=== PATIENT | female | born 1945 | race Caucasian/White ===

== ENCOUNTER → 2016-05-20 | Outpatient (CLI) | payer OTHER ==
[~2016-05-20] MED LIST: ASPEC81 PO; CHOL100010 PO; METO50TA7 PO; MULT-506 PO; NITR-5 PO; OMEG10007 PO; PARO1TAB9 PO
--- NOTE | 2016-05-21 12:25 | MAMMOGRAPHY REPORT ---
BILATERAL DIGITAL SCREENING MAMMOGRAM WITH CAD: 05/20/2016 CLINICAL HISTORY: Routine screening examination. TECHNIQUE: Bilateral CC and MLO views were obtained. Current study was also evaluated with a Comput er Aided Detection (CAD) system. COMPARISON: Comparison is made to exams dated: 05/17/2015 mammogram, 05/16/2014 mammogram, 05/13/2013 mammogram, and 05/03/2011 mammogram - [facility]. BREAST COMPOSITION: The tissue of both breasts is heterogeneously dense, which may obscure small ma sses. FINDINGS: There are stable asymmetries in the right lower inner quadrant and retroareolar breast. A benign coarse calcification in the right breast and mild vascular calcification. No new suspicious mass, architectural distortion or cluster of microcalcifications is seen. IMPRESSION: ACR BI-RADS CATEGORY 1: NEGATIVE There is no mammographic evidence of malignancy. A 1 year screening mammogram is recommended. The p atient will receive written notification of the results. Approximately 10% of breast cancers are not detected with mammography. A negative mammographic repor t should not delay biopsy if a clinically suggestive mass is present. Daniella Silva M.D. ay/:05/20/2016 15:01:14 Derrick Boat Leverman: Jordana BERMAN)(Keisha), [facility] letter sent: Normal 1/2 BI-RADS Code: ACR BI-RADS Category 1: Negative
== END | disposition home or self-care (01) ==
LOC: C.MAMM 13:36
PROVIDERS: ATTEND Obstetrics & Gynecology
DX: Z12.31 Encounter for screening mammogram for malignant neoplasm of breast (principal)

== ENCOUNTER → 2016-05-21 | Outpatient (CLI) | payer OTHER ==
[2016-05-21 17:40] LABS: BLOOD UREA NITROGEN 19 mg/dl (7-18); BUN/CREATININE RATIO 14.3 (10-20); CALCIUM 9.6 mg/dl (8.5-10.1); CARBON DIOXIDE 33 mmol/L (21-32); CHLORIDE 103 mmol/L (98-107); GLUCOSE 84 mg/dl (70-99); POTASSIUM 4.3 mmol/L (3.5-5.1); SODIUM 141 mmol/L (136-145)
[2016-05-21 17:41] LABS: PHOSPHORUS 2.9 mg/dl (2.5-4.9)
[2016-05-22 06:21] LABS: ESTIMATED AVERAGE GLUCOSE 105 mg/dl; HA1C FLAG Normal (Normal)
== END | disposition home or self-care (01) ==
LOC: C.LABBFT 11:48
PROVIDERS: ATTEND Internal Medicine
DX: N18.3 Chronic kidney disease, stage 3 (moderate) (principal); E55.9 Vitamin D deficiency, unspecified; R73.01 Impaired fasting glucose

== ENCOUNTER → 2016-09-30 | Outpatient (CLI) | payer OTHER ==
[2016-09-30 10:00] LABS: ALT/SGPT 32 U/L (12-78); AST/SGOT 26 U/L (15-37); BLOOD UREA NITROGEN 23 mg/dl (7-18); BUN/CREATININE RATIO 20.6 (10-20); CALCIUM 9.2 mg/dl (8.5-10.1); CARBON DIOXIDE 29 mmol/L (21-32); CHLORIDE 107 mmol/L (98-107); GLUCOSE 90 mg/dl (70-99); POTASSIUM 4.5 mmol/L (3.5-5.1); SODIUM 142 mmol/L (136-145)
[2016-09-30 10:04] LABS: CHOLESTEROL 165 mg/dl (0-200); CHOLESTEROL/HDL RATIO 1.5; HDL CHOLESTEROL 113 mg/dl; LDL CHOLESTEROL CALCULATED 41 mg/dl; PHOSPHORUS 3.2 mg/dl (2.5-4.9); TRIGLYCERIDES 57 mg/dl (0-150); VERY LOW DENSITY LIPOPROT CALC 11 mg/dl
== END | disposition home or self-care (01) ==
LOC: C.LAB1850 08:44
PROVIDERS: ATTEND Internal Medicine
DX: I65.23 Occlusion and stenosis of bilateral carotid arteries (principal)

== ENCOUNTER → 2017-04-14 | Outpatient (CLI) | payer OTHER ==
[2017-04-14 09:55] LABS: BASO ABS # 0.04 K/uL (0-0.2); EOS % 2.2 %; EOS ABS # 0.09 K/uL (0-0.5); HEMATOCRIT 40.6 % (37-47); HEMOGLOBIN 13.6 g/dL (12.0-16.0); LYMPH % 39.6 %; MEAN CELL VOLUME 92.3 fL (80-100); MEAN CORPUSCULAR HEMOGLOBIN 30.9 pg (25-34); MEAN CORPUSCULAR HGB CONC 33.5 g/dl (32-36); MEAN PLATELET VOLUME 10.2 fL (7.4-10.4); MONO % 9.7 %; MONO ABS # 0.39 K/uL (0.11-0.59); NEUT % 47.5 %; NEUT ABS # 1.92 K/uL (1.4-6.5); PLATELET COUNT 184 K/uL (130-400); RED CELL DISTRIBUTION WIDTH CV 12.9 % (11.5-14.5); RED CELL DISTRIBUTION WIDTH SD 43.7 fL (36.4-46.3); WHITE BLOOD COUNT 4.04 K/uL (4.8-10.8)
[2017-04-14 10:16] LABS: HEMOGLOBIN A1C 5.5 % (4.5-5.6)
[2017-04-14 10:31] LABS: ALBUMIN 3.9 gm/dl (3.4-5.0); BLOOD UREA NITROGEN 24 mg/dl (7-18); CALCIUM 9.7 mg/dl (8.5-10.1); CARBON DIOXIDE 29 mmol/L (21-32); GLUCOSE 80 mg/dl (70-99); PHOSPHORUS 3.3 mg/dl (2.5-4.9); SODIUM 140 mmol/L (136-145)
== END | disposition home or self-care (01) ==
LOC: C.LAB1850 08:31
PROVIDERS: ATTEND Internal Medicine
DX: N18.3 Chronic kidney disease, stage 3 (moderate) (principal); R73.01 Impaired fasting glucose; E55.9 Vitamin D deficiency, unspecified

== ENCOUNTER → 2017-05-21 | Outpatient (CLI) | payer OTHER ==
[~2017-05-21] MED LIST changes: -METO50TA7 PO; +METO50TA8 PO
--- NOTE | 2017-05-21 15:55 | MAMMOGRAPHY REPORT ---
BILATERAL DIGITAL SCREENING MAMMOGRAM TOMOSYNTHESIS WITH CAD: 05/21/2017 CLINICAL HISTORY: Routine screening. TECHNIQUE: Breast tomosynthesis in addition to standard 2D mammography was performed. Current study was also evaluated with a Computer Aided Detection (CAD) system. COMPARISON: Comparison is made to exams dated: 05/20/2016 mammogram, 05/17/2015 mammogram, 05/16/2014 m ammogram, 05/13/2013 mammogram, 05/12/2012 mammogram, and 05/03/2011 mammogram - [facility]. BREAST COMPOSITION: The tissue of both breasts is heterogeneously dense, which may obscure small mas ses. FINDINGS: There are stable asymmetries in the right breast, and a few benign-appearing calcifications . No suspicious mass, architectural distortion or cluster of microcalcifications is seen. IMPRESSION: ACR BI-RADS CATEGORY 1: NEGATIVE There is no mammographic evidence of malignancy. A 1 year screening mammogram is recommended. The pa tient will receive written notification of the results. Approximately 10% of breast cancers are not detected with mammography. A negative mammographic report should not delay biopsy if a clinically suggestive mass is present. Daniella Silva M.D. ay/:05/21/2017 14:17:13 Sales Development Consultant: Robin WELCH(R)(M), [facility] letter sent: Normal 1/2 BI-RADS Code: ACR BI-RADS Category 1: Negative
== END | disposition home or self-care (01) ==
LOC: C.MAMM 13:19
PROVIDERS: ATTEND Obstetrics & Gynecology
DX: Z12.31 Encounter for screening mammogram for malignant neoplasm of breast (principal)

== ENCOUNTER → 2017-10-23 | Outpatient (CLI) | payer OTHER ==
[2017-10-23 09:38] LABS: HEMOGLOBIN A1C 5.6 % (4.5-5.6)
[2017-10-23 09:59] LABS: ALBUMIN 3.8 gm/dl (3.4-5.0); ALKALINE PHOSPHATASE 76 U/L (45-117); ALT/SGPT 31 U/L (12-78); AST/SGOT 25 U/L (15-37); BLOOD UREA NITROGEN 21 mg/dl (7-18); CALCIUM 9.2 mg/dl (8.5-10.1); CARBON DIOXIDE 30 mmol/L (21-32); CHOLESTEROL 160 mg/dl (0-200); CREATININE 1.18 mg/dl (0.60-1.20); GLUCOSE 89 mg/dl (70-99); LDL CHOLESTEROL CALCULATED 33 mg/dl; POTASSIUM 4.1 mmol/L (3.5-5.1); SODIUM 138 mmol/L (136-145)
== END | disposition home or self-care (01) ==
LOC: C.LAB1850 08:25
PROVIDERS: ATTEND Physician Assistant Medical
DX: N18.3 Chronic kidney disease, stage 3 (moderate) (principal); E78.5 Hyperlipidemia, unspecified; E55.9 Vitamin D deficiency, unspecified; R73.01 Impaired fasting glucose

== ENCOUNTER → 2017-10-28 | Outpatient (CLI) | payer OTHER ==
[2017-10-28 17:07] LABS: BASO % 0.6 %; BASO ABS # 0.03 K/uL (0-0.2); EOS % 0.6 %; EOS ABS # 0.03 K/uL (0-0.5); HEMATOCRIT 38.5 % (37-47); HEMOGLOBIN 12.5 g/dL (12.0-16.0); LYMPH % 32.4 %; LYMPH ABS # 1.74 K/uL (1.2-3.4); MEAN CELL VOLUME 93.4 fL (80-100); MEAN CORPUSCULAR HEMOGLOBIN 30.3 pg (25-34); MEAN CORPUSCULAR HGB CONC 32.5 g/dl (32-36); MEAN PLATELET VOLUME 10.8 fL (7.4-10.4); MONO % 8.2 %; MONO ABS # 0.44 K/uL (0.11-0.59); NEUT % 58.2 %; NEUT ABS # 3.13 K/uL (1.4-6.5); PLATELET COUNT 189 K/uL (130-400); RED CELL DISTRIBUTION WIDTH CV 13.3 % (11.5-14.5); RED CELL DISTRIBUTION WIDTH SD 45.2 fL (36.4-46.3); WHITE BLOOD COUNT 5.37 K/uL (4.8-10.8)
== END | disposition home or self-care (01) ==
LOC: C.LABBFT 13:39
PROVIDERS: ATTEND Internal Medicine
DX: D72.819 Decreased white blood cell count, unspecified (principal)

== ENCOUNTER 2019-09-03 13:33 | Inpatient (IN) ==
[2019-09-03] MEDS ORDERED: SODIUM CHLORIDE 0.9% 1000ML 1,000 ML IV ONE (14:02)
--- NOTE | 2019-09-03 14:05 | Emergency Department Note ---
Impression & Plan Atrial flutter with rapid ventricular response, Syncope, Anticoagulation adequate, Cellulitis ED Provider Note NAME: ROVERTO SILVA AGE: 74 SEX: F : 1945 ARRIVES VIA: Walk-In INFORMANT: Patient ED PROVIDER(S): Sivakumar Berman DO CHIEF COMPLAINT: Palpitations HPI: Patient is a 74-year-old female who presents the ER referred in by PCP for palpitations. She went in to see her primary care doctor for repeat check of a tick bite in her left groin which occurred on Friday. She does not believe the tick was engorged. She believes it was on for less then 24 hours. She notes that she has a history of atrial flutter. She was referred into the ER. She does feel her heart racing. She is not sure if she is always in atrial flutter or not. She denies any dizziness, change in vision, chest pain, shortness of breath, nausea vomiting or diarrhea. No other exacerbating or remitting factors. She notes that she has had this multiple times before in the past. She notes that she does take apixaban. She admits that she has passed out 2 times since Friday. ROS: See above HPI for pertinent positives & negatives. A total of 10 systems reviewed and were otherwise negative. PAST MEDICAL HISTORY:See Below PAST SURGICAL HISTORY:See Below FAMILY HISTORY:See Below SOCIAL HISTORY:See Below HOME MEDICATIONS:See Below ALLERGIES:See Below VITALS:See Below PHYSICAL EXAMINATION: GENERAL: Sitting up in bed, alert, well appearing, well nourished, no distress, non-toxic EYE EXAM: normal conjunctiva. OROPHARYNX: no exudate, no erythema, lips, buccal mucosa, and tongue normal and mucous membranes are moist NECK: supple, no nuchal rigidity, no adenopathy, non-tender LUNGS: Clear to auscultation. Normal chest wall mechanics HEART: Tachycardic, S1 normal and S2 normal ABDOMEN: abdomen soft, non-tender, normo-active bowel sounds, no masses, no rebound or guarding. : Erythema of the left labia majora tracking up to the pubic symphysis. Area is red warm and tender. No abscess appreciated BACK: Back is symmetrical on inspection and there is no deformity, no midline tenderness, no CVA tenderness. SKIN: no rashes and no bruising UPPER EXTREMITIES: upper extremities are grossly normal. LOWER EXTREMITIES: No pitting edema. Calves are equal bilateral NEURO EXAM: Normal sensorium, cranial nerves II-XII grossly intact, normal speech, no gross weakness of arms, no gross weakness of legs. MEDICAL DECISION MAKING: Patient is a 74-year-old female with a past medical history of SVT and atrial flutter that presents the ER referred in by PCP for atrial flutter with RVR and 2 syncopal episodes in the past 3 days. IV was established blood work was obtained. Labs show no significant leukocytosis or anemia. INR was u nremarkable. BMP with LFTs bilirubin and troponin was negative. Lipase was normal. Patient does have a history of atrial flutter. Difficult to ascertain if she is truly always in atrial flutter however she is anticoagulated. Chest x-ray was unremarkable. With her 2 syncopal episodes and sent in by the PCP I discussed case with the hospitalist for observation after discussion with the patient. She was placed on Cardizem drip after I initially gave her 2.5 of Lopressor her heart rate came down into the 90s. She remained there for short period of time and then trended back up to the 130s. Patient was updated at bedside. Do not feel that this tachycardia secondary to the infection at this time as it has been improving, she has no fevers and no significant leukocytosis. Triage Nursing notes reviewed. Prior medical records reviewed Vital Signs: reviewed and remarkable for tachycardic and hypertensive Differential diagnosis: Differential diagnoses includes but is not limited to acute coronary syndrome, myocardial infarction, pericarditis, pulmonary embolus, aortic dissection, pneumonia, pneumothorax, musculoskeletal, shingles, esophageal. ER treatment provided: See below Diagnostics interpreted by me: ECG: Atrial flutter rate of 137 Normal axis Incomplete right bundle Nonspecific ST wave changes in the inferior leads No PVCs Normal QTC EKG #2 Atrial flutter with a variable block rate of 67 Normal axis No PVCs Normal QTC Incomplete right bundle branch block Cardiac Monitoring: An order was placed for continuous cardiac monitoring. The monitor shows a rate of 145 with atrial flutter rhythm. Laboratory studies: As stated above and show below. Imaging studies: Portable AP upright 1 view of the chest shows no focal infiltrate or pneumo thorax Consultation(s): Discussed with Dr. Meng Vee ED COURSE: Procedures: none PDMP:reviewed and no issues Critical Care: I have personally spent 35 minutes of critical care time in the direct management of this patient. This includes bedside care, interpretation of diagnostic studies, and testing, discussion with consultants, patient, and family members, and other required patient management activities. This 35 minutes is in excess of all separately billable procedures. Past Med/Surg History Social History Preferred Language: Citizen Of [place] Communication Ability: Effective Hearing Ability: Normal Exterior Interior Specialist Required: No Beliefs That Will Affect Care: None marital status: Current Living Situation: Spouse current occupational status: retired current occupation: School psychologist Other Information That Helps Us Care for You: No Feels Safe at Home: Yes Safety Concerns: Feels Safe At This Time Smoking Status: Never smoker Hx Alcohol Use: Yes Alcohol type: wine Alcohol type Comment: One glass of wine with dinner occasionally Alcohol Intake Frequency: Daily Hx Substance Use: No Seatbelt Use: always Sunscreen Use: Yes Allergies Allergies Allergy/AdvReac Type Severity Reaction Status Date / Time No Known Drug Allergies Allergy Verified 09/03/19 15:28 Home Meds Home Medications Medication Instructions Recorded Confirmed cholecalciferol (vitamin D3) 25 1,000 units PO QAM 10/28/18 09/03/19 mcg (1,000 unit) capsule multivitamin 1 tab PO QAM 10/28/18 09/03/19 omega-3 fatty acids 1,000 mg 1,000 mg PO QAM 10/28/18 09/03/19 capsule apixaban [Eliquis] 5 mg PO BID 09/03/19 09/03/19 atorvastatin [Lipitor] 20 mg PO HS 09/03/19 09/03/19 doxycycline hyclate [Vibramycin] 100 mg PO BID 09/03/19 09/03/19 nitrofurantoin monohyd/m-cryst 100 mg PO HS 09/03/19 09/03/19 [Macrobid] paroxetine HCl [Paxil CR] 25 mg PO QAM 09/03/19 09/03/19 Results & Data (ED) Vital Signs Vital Signs - 24 hr 09/03/19 13:35 09/03/19 13:50 09/03/19 13:59 Temperature 36.9 C Temperature Source Oral Pulse Rate 145 H 126 H 138 H Pulse Rate from SpO2 Sensor Respiratory Rate 20 12 20 Respiratory Effort / Characteristics Non-Labored Spontaneous Respiratory Depth Normal Respiratory Pattern Regular Blood Pressure 168/98 H 168/108 H Blood Pressure Mean 121 121 Blood Pressure Position Sitting Pulse Oximetry 98 Oxygen Delivery Method Room Air Sepsis Recent Fever Within 48 Hours No Sepsis Action Taken by Nursing No Action Required 09/03/19 14:00 09/03/19 14:01 09/03/19 14:02 Temperature Temperature Source Pulse Rate 118 H 135 H 136 H Pulse Rate from SpO2 Sensor Respiratory Rate 19 19 22 Respiratory Effort / Characteristics Respiratory Depth Respiratory Pattern Blood Pressure 168/106 H Blood Pressure Mean 120 Blood Pressure Position Pulse Oximetry Oxygen Delivery Method Room Air Sepsis Recent Fever Within 48 Hours Sepsis Action Taken by Nursing 09/03/19 14:27 09/03/19 14:30 09/03/19 14:31 Temperature Temperature Source Pulse Rate 90 90 83 Pulse Rate from SpO2 Sensor 92 H 99 H 83 Respiratory Rate 13 14 12 Respiratory Effort / Characteristics Respiratory Depth Respiratory Pattern Blood Pressure 137/98 145/91 H Blood Pressure Mean 102 97 Blood Pressure Position Pulse Oximetry 100 99 99 Oxygen Delivery Method Sepsis Recent Fever Within 48 Hours Sepsis Action Taken by Nursing 09/03/19 14:32 09/03/19 15:00 09/03/19 15:01 Temperature Temperature Source Pulse Rate 85 81 103 H Pulse Rate from SpO2 Sensor 86 85 104 H Respiratory Rate 13 20 19 Respiratory Effort / Characteristics Respiratory Depth Respiratory Pattern Blood Pressure 138/108 H Blood Pressure Mean 113 Blood Pressure Position Pulse Oximetry 99 96 99 Oxygen Delivery Method Sepsis Recent Fever Within 48 Hours Sepsis Action Taken by Nursing 09/03/19 15:31 09/03/19 15:34 09/03/19 16:00 Temperature Temperature Source Pulse Rate 129 H 86 86 Pulse Rate from SpO2 Sensor 87 89 Respiratory Rate 13 14 Respiratory Effort / Characteristics Respiratory Depth Respiratory Pattern Blood Pressure 162/90 H Blood Pressure Mean 127 Blood Pressure Position Pulse Oximetry 98 98 Oxygen Delivery Method Sepsis Recent Fever Within 48 Hours Sepsis Action Taken by Nursing 09/03/19 16:01 09/03/19 16:02 09/03/19 16:30 Temperature Temperature Source Pulse Rate 91 H 97 H 91 H Pulse Rate from SpO2 Sensor 84 95 H 89 Respiratory Rate 14 18 Respiratory Effort / Characteristics Respiratory Depth Respiratory Pattern Blood Pressure 146/91 H Blood Pressure Mean 107 Blood Pressure Position Pulse Oximetry 98 97 98 Oxygen Delivery Method Sepsis Recent Fever Within 48 Hours Sepsis Action Taken by Nursing 09/03/19 16:31 09/03/19 16:32 09/03/19 17:00 Temperature Temperature Source Pulse Rate 82 76 90 Pulse Rate from SpO2 Sensor 78 96 H 89 Respiratory Rate 19 22 20 Respiratory Effort / Characteristics Respiratory Depth Respiratory Pattern Blood Pressure 154/87 H Blood Pressure Mean 112 Blood Pressure Position Pulse Oximetry 99 99 100 Oxygen Delivery Method Sepsis Recent Fever Within 48 Hours Sepsis Action Taken by Nursing 09/03/19 17:01 09/03/19 17:02 09/03/19 17:30 Temperature Temperature Source Pulse Rate 82 Pulse Rate from SpO2 Sensor 105 H 85 Respiratory Rate 19 18 14 Respiratory Effort / Characteristics Respiratory Depth Respiratory Pattern Blood Pressure 140/103 H Blood Pressure Mean 110 Blood Pressure Position Pulse Oximetry 99 100 98 Oxygen Delivery Method Sepsis Recent Fever Within 48 Hours Sepsis Action Taken by Nursing 09/03/19 17:31 09/03/19 18:00 09/03/19 18:01 Temperature Temperature Source Pulse Rate 91 H 88 83 Pulse Rate from SpO2 Sensor 94 H 85 84 Respiratory Rate 17 14 14 Respiratory Effort / Characteristics Respiratory Depth Respiratory Pattern Blood Pressure 135/78 153/94 H Blood Pressure Mean 97 113 Blood Pressure Position Pulse Oximetry 98 98 99 Oxygen Delivery Method Sepsis Recent Fever Within 48 Hours Sepsis Action Taken by Nursing 09/03/19 18:02 09/03/19 18:30 09/03/19 18:31 Temperature Temperature Source Pulse Rate 75 70 78 Pulse Rate from SpO2 Sensor 82 74 80 Respiratory Rate 16 19 18 Respiratory Effort / Characteristics Respiratory Depth Respiratory Pattern Blood Pressure 126/83 Blood Pressure Mean 98 Blood Pressure Position Pulse Oximetry 98 99 98 Oxygen Delivery Method Sepsis Recent Fever Within 48 Hours Sepsis Action Taken by Nursing Laboratory Data Result diagrams: 09/03/19 13:56 09/03/19 13:56 Lab Results 09/03/19 09/03/19 09/03/19 Range/Units 13:56 13:56 13:56 WBC 4.89 (4.8-10.8) K/uL RBC 4.60 (4.2-5.4) M/uL Hgb 13.7 (12.0-16.0) g/dL Hct 41.8 (37-47) % MCV 90.9 (80-100) fL MCH 29.8 (25-34) pg MCHC 32.8 (32-36) g/dL RDW Std Deviation 44.2 (36.4-46.3) fL RDW Coeff of Kelly 13.4 (11.5-14.5) % Plt Count 190 (130-400) K/uL MPV 10.1 (7.4-10.4) fL Immature Gran % (Auto) 0.2 % Neut % (Auto) 61.6 % Lymph % (Auto) 24.7 % [place] % (Auto) 12.7 % Eos % (Auto) 0.4 % Baso % (Auto) 0.4 % Immature Gran # (Auto) 0.01 (0.00-0.02) K/uL Neut # (Auto) 3.01 (1.4-6.5) K/uL Lymph # (Auto) 1.21 (1.2-3.4) K/uL [place] # (Auto) 0.62 H (0.11-0.59) K/uL Eos # (Auto) 0.02 (0-0.5) K/uL Baso # (Auto) 0.02 (0-0.2) K/uL PT 11.3 (9.0-12.0) Seconds INR 1.1 (0.9-1.1) APTT 27.9 (21.0-31.0) Seconds PTT Ratio 1.0 Sodium 139 (136-145) mmol/L Potassium 3.7 (3.5-5.1) mmol/L Chloride 104 (98-107) mmol/L Carbon Dioxide 28 (21-32) mmol/L Anion Gap 7.0 (3-11) BUN 17 (7-18) mg/dl Creatinine 1.14 (0.6-1.2) mg/dl Est Cr Clr Drug Dosing 36.4 ml/min Est GFR ( Amer) 55.2 Est GFR (Non-Af Amer) 47.7 BUN/Creatinine Ratio 14.7 (10-20) Glucose 101 H (70-99) mg/dl Calcium 9.8 (8.5-10.1) mg/dl Total Bilirubin 0.7 (0.2-1) mg/dl AST 21 (15-37) U/L ALT 30 (12-78) U/L Alkaline Phosphatase 88 (45-117) U/L Troponin I < 0.015 (0-0.045) ng/ml Total Protein 7.4 (6.4-8.2) gm/dl Albumin 3.6 (3.4-5.0) gm/dl Globulin 3.8 (2.5-4.0) gm/dl Albumin/Globulin Ratio 1.0 (0.9-2) Lipase 168 (73-393) U/L Administered Medications Discontinued Medications Sodium Chloride (Nss 1000ml) 1,000 mls @ 999 mls/hr IV .Q1H1M ONE Stop: 09/03/19 15:02 Last Infusion: 09/03/19 15:24 Dose: 0 mls/hr Documented by: [id number] Admin: 09/03/19 14:07 Dose: 999 mls/hr Documented by: [id number] Diltiazem HCl 125 mg/ Dextrose 125 mls @ 5 mls/hr IV .Q24H [facility]; Protocol Stop: 10/03/19 15:14 Last Admin: 09/03/19 15:28 Dose: 2.5 mg/hr, 2.5 mls/hr Documented by: [id number] Cosigned by: [id number] Metoprolol Tartrate (Lopressor) 2.5 mg IV NOW STA Stop: 09/03/19 14:23 Last Admin: 09/03/19 14:27 Dose: 2.5 mg Documented by: [id number] Metoprolol Tartrate (Lopressor) 2.5 mg IV NOW STA Stop: 09/03/19 17:39 Last Admin: 09/03/19 18:37 Dose: Not Given Documented by: [id number] Metoprolol Tartrate (Lopressor) 5 mg IV NOW STA Stop: 09/03/19 17:39 Last Admin: 09/03/19 18:30 Dose: Not Given Documented by: [id number] Metoprolol Tartrate (Lopressor) 25 mg PO ONE STA Stop: 09/03/19 17:58 Last Admin: 09/03/19 18:36 Dose: 25 mg Documented by: [id number] Miscellaneous () 1 ea N/A NOW STA Stop: 09/03/19 15:06 Last Admin: 09/03/19 15:32 Dose: Not Given Documented by: [id number] Discharge Plan Visit Data Chief Complaint: Arrhythmia/Palpitations Stated Complaint: RAPID HEARTBEAT - DR REF ED Provider: Sivakumar Berman Discharge Problem: Atrial flutter with rapid ventricular response, Syncope, Anticoagulation adequate, Cellulitis Discharge Instructions Interventions: ED Discharge Assessment Last Done: 09/03/19 18:31 Forms Stand Alone Forms: My [facility] Prescriptions Prescriptions: No Action cholecalciferol (vitamin D3) 1,000 unit capsule 1,000 units PO QAM RF: 0 omega-3 fatty acids [Fish Oil Concentrate] 1,000 mg capsule 1,000 mg PO QAM RF: 0 multivitamin tablet 1 tab PO QAM RF: 0 doxycycline hyclate [Vibramycin] 100 mg capsule 100 mg PO BID RF: 0 atorvastatin [Lipitor] 20 mg tablet 20 mg PO HS RF: 0 paroxetine HCl [Paxil CR] 25 mg tablet extended release 24 hr 25 mg PO QAM RF: 0 nitrofurantoin monohyd/m-cryst [Macrobid] 100 mg capsule 100 mg PO HS RF: 0 Eliquis 5 mg tablet 5 mg PO BID RF: 0 Referrals Referrals: Gino James MD [Primary Care Provider] - Discharge Problem: Syncope Qualifiers: Syncope type: unspecified Qualified Code(s): R55 - Syncope and collapse Cellulitis Qualifiers: Site of cellulitis: unspecified site Qualified Code(s): L03.90 - Cellulitis, unspecified
[2019-09-03 14:13] LABS: Basophils # (auto) 0.02 K/uL (0-0.2); Basophils % (auto) 0.4 %; Eosinophils # (auto) 0.02 K/uL (0-0.5); Eosinophils % (auto) 0.4 %; Hematocrit (blood only) 41.8 % (37-47); Hemoglobin 13.7 g/dL (12.0-16.0); Immature Granulocytes # (auto) 0.01 K/uL (0.00-0.02); Immature Granulocytes % (auto) 0.2 %; Lymphocytes # (auto) 1.21 K/uL (1.2-3.4); Lymphocytes % (auto) 24.7 %; Mean Corpuscular Hemoglobin 29.8 pg (25-34); Mean Corpuscular Hgb Conc 32.8 g/dL (32-36); Mean Corpuscular Volume 90.9 fL (80-100); Mean Platelet Volume 10.1 fL (7.4-10.4); Monocytes # (auto) 0.62 K/uL (0.11-0.59); Monocytes % (auto) 12.7 %; Neutrophils # (auto) 3.01 K/uL (1.4-6.5); Neutrophils % (auto) 61.6 %; Platelet Count 190 K/uL (130-400); RDW Coefficient of Variation 13.4 % (11.5-14.5); RDW Standard Deviation 44.2 fL (36.4-46.3); White Blood Count 4.89 K/uL (4.8-10.8)
--- NOTE | 2019-09-03 14:20 | XRay Report ---
XR chest 1V portable CLINICAL HISTORY: Atypical chest pain COMPARISON STUDY: No previous studies for comparison. FINDINGS: The heart is enlarged. There are postsurgical changes of midline sternotomy. There is no fa ilure. There is no focal pulmonary consolidation. There are no pleural effusions. There is a thoracol umbar scoliosis.[ IMPRESSION: No active disease in the chest. ACT 112: Negative or not required by law. Electronically signed by: León Grant M.D. 09/03/2019 2:19 PM
[2019-09-03] MEDS ORDERED: METOPROLOL TARTRATE 1 MG/ML VIAL IV STA ×3 (14:22→17:38)
[2019-09-03 14:36] LABS: Alanine Aminotransferase 30 U/L (12-78); Albumin Level 3.6 gm/dl (3.4-5.0); Aspartate Aminotransferase 21 U/L (15-37); BUN Creatinine Ratio 14.7 (10-20); Blood Urea Nitrogen 17 mg/dl (7-18); Calcium 9.8 mg/dl (8.5-10.1); Carbon Dioxide 28 mmol/L (21-32); Chloride 104 mmol/L (98-107); Creatinine Clr Calc Pharmacy 36.4 ml/min; Est GFR (African American) 55.2; Est GFR (Non-African American) 47.7; Glucose 101 mg/dl (70-99); Lipase 168 U/L (73-393); Potassium 3.7 mmol/L (3.5-5.1); Sodium 139 mmol/L (136-145)
[2019-09-03 14:37] LABS: INR 1.1 (0.9-1.1); Partial Thromboplastin Time 27.9 Seconds (21.0-31.0); Prothrombin Time 11.3 Seconds (9.0-12.0)
[2019-09-03 14:40] LABS: Alkaline Phosphatase 88 U/L (45-117); Bilirubin,Total 0.7 mg/dl (0.2-1); Globulin 3.8 gm/dl (2.5-4.0); Total Protein 7.4 gm/dl (6.4-8.2); Troponin I < 0.015 ng/ml (0-0.045)
[2019-09-03] MEDS ORDERED: STAT IV Infusion **Titration per Protocol STA (15:05)
[2019-09-03] MEDS ORDERED: dilTIAZem HCL 125 MG in DEXTROSE 5% 100 ML IV SCH (15:15)
--- NOTE | 2019-09-03 17:52 | History & Physical Report ---
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 Monitor on telemetry overnight. Consider outpatient monitor. (3) Cellulitis: Continue her outpatient doxycycline as appears to be working (4) Depression: Continue paroxetine (5) Status post atrial septal defect repair: Noted history of this Admission and Anticipated Discharge Date Admission Date: 09/03/2019 History of Present Illness Chief Complaint: Atrial flutter with RVR Primary Care Provider: Marc James MD Carmen Harris is a 74 year old female with known atrial flutter who presents to the ER on the advice of her PCP due to ongoing atrial flutter with rapid ventricular rate. She notices palpitations but is otherwise asymptomatic with this and denies any chest pain, shortness of breath. She is recently being treated for left groin cellulitis which is improving with doxycycline. She denies any fevers or chills. She reported two episodes of passing out to the ER physician although she reports these were presyncopal episodes to me, feels dizzy on standing. She has known atrial flutter diagnosed during a routine PCP visit in October. She was rate controlled at that time therefore was not placed on any rate controlling medication. She was started on Eliquis for anticoagulation and has not noticed any black stool, bright red blood in stool or excessive external bleeding since starting this. In the ER she was started on a diltiazem drip. I subsequently discontinued this and started metoprolol 25mg PO. Rate on the diltiazem drip was approximately 90- 100. Allergies Allergy/AdvReac Type Severity Reaction Status Date / Time No Known Drug Allergies Allergy Verified 09/03/19 15:28 Home Medications Home Medications Medication Instructions Recorded Confirmed Type cholecalciferol (vitamin D3) 25 1,000 units PO QAM 10/28/18 09/03/19 History mcg (1,000 unit) capsule multivitamin 1 tab PO QAM 10/28/18 09/03/19 History omega-3 fatty acids 1,000 mg 1,000 mg PO QAM 10/28/18 09/03/19 History capsule Eliquis 5 mg PO BID 09/03/19 09/03/19 History atorvastatin [Lipitor] 20 mg PO HS 09/03/19 09/03/19 History doxycycline hyclate [Vibramycin] 100 mg PO BID 09/03/19 09/03/19 History nitrofurantoin monohyd/m-cryst 100 mg PO HS 09/03/19 09/03/19 History [Macrobid] paroxetine HCl [Paxil CR] 25 mg PO QAM 09/03/19 09/03/19 History metoprolol succinate 25 mg PO QPM 30 Days #30 tab 09/04/19 Rx Past Med/Surg History Medical History Anxiety Atrial flutter Benign colonic polyp Chronic kidney disease (CKD), stage III (moderate) Depression Dyslipidemia History of basal cell carcinoma History of supraventricular tachycardia Impaired fasting glucose Leukopenia Recurrent UTI Vitamin D deficiency Surgical History Status post atrial septal defect repair (2000) Status post Mohs surgery for basal cell carcinoma (Resolved) Family History Mother Dementia Brother Colorectal cancer Denies family history of Breast cancer Social History Preferred Language: Citizen Of [place] Communication Ability: Effective Hearing Ability: Normal Refueling Ramp Attendant Required: No Beliefs That Will Affect Care: None marital status: Current Living Situation: Spouse current occupational status: retired current occupation: School psychologist Other Information That Helps Us Care for You: No Feels Safe at Home: Yes Safety Concerns: Feels Safe At This Time Smoking Status: Never smoker Hx Alcohol Use: Yes Alcohol type: wine Alcohol type Comment: One glass of wine with dinner occasionally Alcohol Intake Frequency: Daily Hx Substance Use: No Seatbelt Use: always Sunscreen Use: Yes Review of Systems Review of Systems: All systems reviewed & are unremarkable except as noted in HPI & below Physical Exam Constitutional: well developed and well nourished; no acute distress Eyes: + anicteric sclerae; normal pupil size ENMT: external ear and nose normal, oropharynx normal Neck: trachea midline, no thyromegaly Respiratory: normal respiratory effort, lungs clear to auscultation Cardiovascular: Rate/Rhythm: + tachycardic and + irregularly irregular Heart Sounds: no murmur Vessels: no JVD Extremities: normal capillary refill; no calf tenderness and no pedal edema Gastrointestinal (Abdomen): normal bowel sounds, soft, nontender, no hepatosplenomegaly Musculoskeletal: no cyanosis or clubbing, extremities motor strength 5/5 Skin: no rashes, warm and dry Neurologic: moves all extremities and awake; not confused Psychiatric: A+Ox3, euthymic affect Lymphatic: no cervical or axillary lymphadenopathy Results & Data Results & Data ([facility]) Vital Signs (Past 12 Hours) Vital Signs Temp Pulse Resp BP Pulse Ox 09/03/19 17:01 19 140/103 H 99 09/03/19 17:00 90 20 100 09/03/19 16:32 76 22 99 09/03/19 16:31 82 19 154/87 H 99 09/03/19 16:30 91 H 18 98 09/03/19 16:02 97 H 97 09/03/19 16:01 91 H 14 146/91 H 98 09/03/19 16:00 86 14 98 09/03/19 15:34 86 13 162/90 H 98 09/03/19 15:31 129 H 09/03/19 15:01 103 H 19 138/108 H 99 09/03/19 15:00 81 20 96 09/03/19 14:32 85 13 99 09/03/19 14:31 83 12 145/91 H 99 09/03/19 14:30 90 14 99 09/03/19 14:27 90 13 137/98 100 09/03/19 14:02 136 H 22 09/03/19 14:01 135 H 19 168/106 H 09/03/19 14:00 118 H 19 09/03/19 13:59 138 H 20 168/108 H 09/03/19 13:50 126 H 12 09/03/19 13:35 36.9 C 145 H 20 168/98 H 98 Diagnostic Findings XR chest 1V portable IMPRESSION: No active disease in the chest. ECG Indication: SOB/dyspnea Rate (beats per minute): 137 Rhythm: atrial flutter (2:1 block) Comparison ECG Date: from (11/03/2018) Change: the following changes noted (rate increased but remains in a. flutter) Code Status & VTE Plan Code Status Full VTE Prophylaxis Plan VTE Prophylaxis will be ordered: Yes PG Care Time/CCT Total # of Minutes Spent Total Time Spent with Patient: Total time spent is greater than 50% in coordination of care (as documented) at patient's floor/unit and/or counseling patient: Coding Level of Care Code 48991 Initial Inpt Care Lvl 2 Diagnoses Atrial flutter I48.92 Syncope R55 Syncope type: unspecified Cellulitis L03.90 Site of cellulitis: unspecified site Depression F32.9 Status post atrial septal defect repair Z87.74 (1) Syncope Syncope type: unspecified Qualified Code(s): R55 - Syncope and collapse (2) Cellulitis Site of cellulitis: unspecified site Qualified Code(s): L03.90 - Cellulitis, unspecified
[2019-09-03] MEDS ORDERED: METOPROLOL TARTRATE 25 MG TAB PO STA (17:57)
[2019-09-03] MEDS ORDERED: MAGNESIUM HYDROXIDE SUSP 30 ML UDC PO PRN (19:27)
[2019-09-03] MEDS ORDERED: POLYETHYLENE (MIRALAX) 17 GM PACK PO PRN (19:27)
[2019-09-03] MEDS ORDERED: ONDANSETRON INJ 2 MG/ML 2 ML VIAL IV PRN (19:27)
[2019-09-03] MEDS ORDERED: ACETAMINOPHEN 325 MG TAB PO PRN (19:27)
[2019-09-03] MEDS ORDERED: ALUMINUM/MAGNESIUM SUSP 30 ML UDC PO PRN (19:27)
[2019-09-03] MEDS: DOXYCYCLINE HYCLATE 100 MG CAP PO SCH (21:00)
[2019-09-03] MEDS ORDERED: ATORVASTATIN 20 MG TAB PO SCH (21:00)
[2019-09-03] MEDS: APIXABAN 5 MG TABLET PO SCH (21:00)
--- NOTE | 2019-09-04 06:35 | Electrocardiogram Report ---
Test Reason : Blood Pressure : / mmHG Vent. Rate : 137 BPM Atrial Rate : 137 BPM P-R Int : 152 ms QRS Dur : 102 ms QT Int : 268 ms P-R-T Axes : 000 027 065 degrees QTc Int : 404 ms Atrial flutter with 2 to 1 block Incomplete right bundle branch block Nonspecific ST abnormality Abnormal ECG When compared with ECG of 07-FEB-2011 15:05, Atrial flutter has replaced Supraventricular tachycardia Confirmed by Juan Diego Mead ([id number]) on 09/04/2019 6:35:07 AM Referred By: REFERRED SELF Confirmed By:Juan Diego Mead
[2019-09-04] MEDS: APIXABAN 5 MG TABLET PO SCH (08:26)
[2019-09-04] MEDS: DOXYCYCLINE HYCLATE 100 MG CAP PO SCH (08:27)
[2019-09-04] MEDS ORDERED: OMEGA-3 (PURIFIED FISH OIL) 1 GM CAP PO SCH (09:00)
[2019-09-04] MEDS ORDERED: MULTIVITAMIN TAB PO SCH (09:00)
[2019-09-04] MEDS ORDERED: PARoxetine HCl CONTROLLED REL 12.5 MG TABCR PO SCH (09:00)
[2019-09-04] MEDS ORDERED: CHOLECALCIFEROL 1,000 UNITS 25 MCG TAB PO SCH (09:00)
--- NOTE | 2019-09-04 09:11 | Electrocardiogram Report ---
Test Reason : Blood Pressure : / mmHG Vent. Rate : 082 BPM Atrial Rate : 258 BPM P-R Int : 000 ms QRS Dur : 096 ms QT Int : 392 ms P-R-T Axes : -74 036 061 degrees QTc Int : 457 ms Atrial flutter with variable A-V block RSR' or QR pattern in V1 suggests right ventricular conduction delay Abnormal ECG When compared with ECG of 03-SEP-2019 14:57, (unconfirmed) No significant change was found Confirmed by Reynaldo Mason ([id number]) on 09/04/2019 9:11:21 AM Referred By: REFERRED SELF Confirmed By:Reynaldo Mason
--- NOTE | 2019-09-04 09:12 | Electrocardiogram Report ---
Test Reason : Blood Pressure : / mmHG Vent. Rate : 067 BPM Atrial Rate : 258 BPM P-R Int : 000 ms QRS Dur : 092 ms QT Int : 402 ms P-R-T Axes : 000 034 046 degrees QTc Int : 424 ms Atrial flutter with variable A-V block Abnormal ECG When compared with ECG of 03-SEP-2019 13:45, The HR has declined by 70 BPM Confirmed by Reynaldo Mason ([id number]) on 09/04/2019 9:12:23 AM Referred By: REFERRED SELF Confirmed By:Reynaldo Mason
[2019-09-04] MEDS ORDERED: METOPROLOL SUCC 25MG EXT REL TAB PO SCH ×2 (10:15→10:30)
--- NOTE | 2019-09-04 10:20 | Cardiology Consultation ---
Date of Consultation She was admitted with atrial flutter with a rapid ventricular response. She is aware of intermittent palpitations. She feels better this morning. Her heart rates are improved. She is very active she walks with her on a regular basis without any symptoms. She climbs a flight of stairs without any lightheadedness or dizziness. Her function capacity in the last months remained stable. She has any bleeding bruising dark stools or black stools on anticoagulation. She is aware of intermittent palpitations at home at times when her heart rate is faster. In reviewing her outside records it appears that she is in chronic atrial flutter at this point. She has any chest pain chest pressure chest heaviness. Denies any shortness of breath. She denies any orthopnea. The rest of a complete her systems otherwise negative September 04, 2019 History of Present Illness Attending Physician: Norm Toney DO Allergies Allergy/AdvReac Type Severity Reaction Status Date / Time No Known Drug Allergies Allergy Verified 09/03/19 15:28 Home Medications Home Medications Medication Instructions Recorded Confirmed Type cholecalciferol (vitamin D3) 25 1,000 units PO QAM 10/28/18 09/03/19 History mcg (1,000 unit) capsule multivitamin 1 tab PO QAM 10/28/18 09/03/19 History omega-3 fatty acids 1,000 mg 1,000 mg PO QAM 10/28/18 09/03/19 History capsule apixaban [Eliquis] 5 mg PO BID 09/03/19 09/03/19 History atorvastatin [Lipitor] 20 mg PO HS 09/03/19 09/03/19 History doxycycline hyclate [Vibramycin] 100 mg PO BID 09/03/19 09/03/19 History nitrofurantoin monohyd/m-cryst 100 mg PO HS 09/03/19 09/03/19 History [Macrobid] paroxetine HCl [Paxil CR] 25 mg PO QAM 09/03/19 09/03/19 History Patient History Medical History Anxiety Atrial flutter Benign colonic polyp Chronic kidney disease (CKD), stage III (moderate) Depression Dyslipidemia History of basal cell carcinoma History of supraventricular tachycardia Impaired fasting glucose Leukopenia Recurrent UTI Vitamin D deficiency Surgical History Status post atrial septal defect repair (2000) Status post Mohs surgery for basal cell carcinoma (Resolved) Family History Mother Dementia Brother Colorectal cancer Denies family history of Breast cancer Social History Preferred Language: [place] Communication Ability: Effective Hearing Ability: Normal Straw Baler Required: No Beliefs That Will Affect Care: None marital status: Current Living Situation: Spouse current occupational status: retired current occupation: School psychologist Other Information That Helps Us Care for You: No Feels Safe at Home: Yes Safety Concerns: Feels Safe At This Time Smoking Status: Never smoker Hx Alcohol Use: Yes Alcohol type: wine Alcohol type Comment: One glass of wine with dinner occasionally Alcohol Intake Frequency: Daily Hx Substance Use: No Seatbelt Use: always Sunscreen Use: Yes Results & Data ([facility]) Vital Signs (Past 12 Hours) Vital Signs Temp Pulse Pulse Resp BP Pulse Ox 09/04/19 07:39 36.6 C 87 18 144/88 H 97 09/04/19 07:31 64 09/04/19 03:38 36.5 C 65 16 123/76 97 09/04/19 00:13 63 09/03/19 23:43 36.6 C 67 17 136/75 97 she is awake alert and oriented x3 she is in no acute distress. She looks younger than her stated age HEENT: 2+ carotid upstrokes no evidence of carotid bruits Pressure appeared normal her sclerae anicteric her hearing is normal Lungs: Clear to auscultation bilaterally no rales rhonchi or wheezing Heart: Tachycardic, irregularly irregular. No murmurs or rubs Abdomen: Soft nontender distended positive bowel sounds Extremities no clubbing cyanosis or edema Psychiatric affect appeared appropriate Impressions #1 atrial flutter with a rapid ventricular response 2. History of atrial septal defect status post open surgical repair 3. Chronic anticoagulation As discussed with the hospitalist service I would start low-dose Toprol-XL 25 mg at night. She can get her first dose today and then start taking it at night on Friday night. She is on anticoagulation and should remain on anticoagulation. I did ask her to get a pulse ox just to make sure her heart rate is not too slow at home. If her heart rate is less than 50 bpm or she feels lightheaded or dizzy we can reduce the dose to 12-1/2 mg. She should remain on anticoagulati on. Clinically she does not have any heart failure symptoms and her function capacity is stable. She can follow-up with Dr. Lucas as an outpatient.
--- NOTE | 2019-09-04 10:24 | Discharge Summary ---
Date of Service September 04, 2019 Admission HPI Per Admitting Provider Carmen Harris is a 74 year old female with known atrial flutter who presents to the ER on the advice of her PCP due to ongoing atrial flutter with rapid ventricular rate. She notices palpitations but is otherwise asymptomatic with this and denies any chest pain, shortness of breath. She is recently being treated for left groin cellulitis which is improving with doxycycline. She denies any fevers or chills. She reported two episodes of passing out to the ER physician although she reports these were presyncopal episodes to me, feels dizzy on standing. She has known atrial flutter diagnosed during a routine PCP visit in October. She was rate controlled at that time therefore was not placed on any rate controlling medication. She was started on Eliquis for anticoagulation and has not noticed any black stool, bright red blood in stool or excessive external bleeding since starting this. In the ER she was started on a diltiazem drip. I subsequently discontinued this and started metoprolol 25mg PO. Rate on the diltiazem drip was approximately 90- 100. Principal Diagnosis Atrial flutter with RVR and syncope Discharge Exam Constitutional WD/WN, vitals as above Eyes PERRL, conjunctivae normal, anicteric sclerae ENMT external ear and nose normal, oropharynx normal Neck trachea midline, no thyromegaly Respiratory normal respiratory effort, lungs clear to auscultation Cardiovascular Rate/Rhythm: regular rate and + irregularly irregular Heart Sounds: normal S1 and normal S2; no murmur Vessels: no JVD Extremities: normal capillary refill; no edema Gastrointestinal (Abdomen) normal bowel sounds, soft, nontender, no hepatosplenomegaly Musculoskeletal no cyanosis or clubbing, extremities motor strength 5/5 Skin no rashes, warm and dry Neurologic patellar DTR's 2+ bilat, sensation intact and PERRL, EOMI, accommodation nl, no face palsy, no dysarthria Psychiatric A+Ox3, euthymic affect Lymphatic no cervical or axillary lymphadenopathy Discharge Data Allergies Allergy/AdvReac Type Severity Reaction Status Date / Time No Known Drug Allergies Allergy Verified 09/03/19 15:28 Consultations 09/03/19 15:11 ED Decision to Admit Stat 09/03/19 19:27 Consult Cardiology Routine Hospital Course (1) Atrial flutter: rapid rate resolved with Lopressor 5mg IV and 25mg PO Lopressor Anticoagulation Eliquis 5mg PO BID d/w Dr. Mason, will give Toprol 25mg this morning, then she should start taking in the PM on Tuesday 09/[address] Lucas in a few weeks she is feeling well, ready to go home (2) Syncope: Presyncope with standing ?due to rapid rate. no further episodes, feels great today HR is much better controlled on metoprolol (3) Cellulitis: Continue her outpatient doxycycline as appears to be working (4) Depression: Continue paroxetine (5) Status post atrial septal defect repair: Noted history of this Total Time Total Time Spent Total Time Spent (In Minutes): 20 Total Time Includes: Examination of the Patient, Discharge Planning, Medication Reconciliation and Communication With Other Providers (Dr. Mason) Discharge Plan Discharge Items Patient Disposition: Home - Self-Care Reason For Visit: ATRIAL FLUTTER WITH RVR Discharge Diagnosis: Atrial flutter with RVR Condition on Discharge: Good Goals: follow up with Dr. James in one week follow up with Dr. Lucas in 3-4 weeks Activity: Resume your previous activity Driving/Machine Use: No limitations Weightbearing: Full weightbearing Non-emergency contact: Primary Care Provider and Operations Support Representative Call non-emergency contact if: you have any medication questions Follow-up/Referrals: Naresh Lucas MD [Physician] - (3-4 weeks) Gino James MD [Primary Care Provider] - (one week) Diet: Heart Healthy Addtl Attending Provider Instructions: Medications: - TOPROL: 25mg every evening, you received a dose this morning prior to discharge so please start taking this Friday evening this is for hear rate control Atrial flutter with rapid response HR much improved after Lopressor IV and metoprolol 25mg last evening, HR in the 80's Dr. Mason recommends that you continue on toprol 25mg every evening check your pulse periodically, if it is in the 50's you can reduce the dose to 12.5mg in the evening continue on eliquis for anticoagulation follow up with Dr. James in one week Dr. Lucas in 3-4 weeks Pending Studies at Discharge: No Stand-Alone Forms: My Smart Destinations, Smoking Cessation Medications and DC Order Prescriptions: New metoprolol succinate 25 mg Tablet Extended Release 24 Hr 25 mg PO QPM 30 Days Qty: 30 RF: 3 Continued cholecalciferol (vitamin D3) 1,000 unit capsule 1,000 units PO QAM RF: 0 omega-3 fatty acids [Fish Oil Concentrate] 1,000 mg capsule 1,000 mg PO QAM RF: 0 multivitamin tablet 1 tab PO QAM RF: 0 doxycycline hyclate [Vibramycin] 100 mg capsule 100 mg PO BID RF: 0 atorvastatin [Lipitor] 20 mg tablet 20 mg PO HS RF: 0 paroxetine HCl [Paxil CR] 25 mg tablet extended release 24 hr 25 mg PO QAM RF: 0 nitrofurantoin monohyd/m-cryst [Macrobid] 100 mg capsule 100 mg PO HS RF: 0 Eliquis 5 mg tablet 5 mg PO BID RF: 0 Discharge Orders: Discharge Order (Routine); Ordered 09/04/19 Ordered By: Norm Toney Admission Data Admit Date/Time: 09/03/19 17:48 Attending Provider: Norm Toney Admit Provider: Meng Vee Primary Care Provider: Gino James Other Providers: Meng Vee ; Naresh Lucas Other Interventions: Discharge Summary Assessment (RN) Last Done: 09/04/19 10:29 DC Date/Time DO NOT enter until pt leaves facility: 09/04/19 11:04 Coding Level of Care Code 44668 OBS Care - Discharge Diagnoses Atrial flutter I48.92 Syncope R55 Syncope type: unspecified Cellulitis L03.90 Site of cellulitis: unspecified site Depression F32.9 Status post atrial septal defect repair Z87.74
== END 2019-09-04 11:04 | disposition home or self-care (01) | DRG 309 ==
LOC: ED 13:33 → 2N 17:48 → SUATTDRO 17:48 → 2N 18:31